=== PATIENT | male | born 1975 | race Caucasian/White ===

== ENCOUNTER 2018-11-12 00:29 | Observation (INO) ==
[2018-11-12] MEDS ORDERED: Ketorolac 30 MG/ML VIAL IVP ONE (01:25)
[2018-11-12] MEDS ORDERED: 0.9 % Sodium Chloride 1,000 ML IVC ONE (01:25)
[2018-11-12 01:33] LABS: Basophils # 0.1 K/mcL (0.0-0.2); Basophils % 0.5 %; Eosinophils # 0.2 K/mcL (0.0-0.6); Eosinophils % 1.1 %; Hematocrit 44.6 % (37.5-50.1); Hemoglobin 15.4 g/dL (12.9-16.9); Immature Granulocytes % 0.3 % (0-4); Lymphocytes # 1.1 K/mcL (0.6-4.6); Lymphocytes % 7.6 %; Mean Corpuscular HGB Conc 34.5 g/dL (31.6-35.5); Mean Corpuscular Hemoglobin 30.6 pg (28.0-33.3); Mean Corpuscular Volume 88.7 fL (83.0-100.0); Mean Platelet Volume 9.4 fL (9.4-12.4); Monocytes # 1.2 K/mcL (0.0-1.3); Monocytes % 8.4 %; Neutrophils # 11.9 K/mcL (1.6-8.9); Platelet Count 335 K/mcL (140-400); Red Blood Count 5.03 M/mcL (4.19-5.50); Red Cell Distribution Width 13.2 % (11.5-14.5); Segmented Neutrophils % 82.1 %
[2018-11-12 01:35] LABS: Bilirubin,Urine Negative (Negative); Blood,Urine Negative (Negative); Clarity,Urine Clear (Clear); Color,Urine Yellow (Yellow); Glucose,Urine (UA) Normal (Normal); Ketones,Urine Negative (Negative); Leukocyte Esterase,Urine Negative (Negative); Nitrite,Urine Negative (Negative); PH,Urine 6.5 pH Units (5.0-8.0); Protein,Urine Negative (Neg-Trace); Urobilinogen,Urine Normal (Normal)
[2018-11-12 01:45] LABS: Alanine Aminotransferase 23 Units/L (7-52); Albumin 4.3 g/dL (3.5-5.7); Albumin/Globulin Ratio 1.6 (1.1-2.2); Alkaline Phosphatase 67 Units/L (34-104); Aspartate Amino Transferase 16 Units/L (13-39); BUN/Creatinine Ratio 14 (6-26); Bilirubin,Direct 0.1 mg/dL (0.0-0.2); Bilirubin,Indirect 0.3 mg/dL (0.0-1.2); Bilirubin,Total 0.4 mg/dL (0.3-1.0); Blood Urea Nitrogen 13 mg/dL (6-20); Calcium 9.1 mg/dL (8.6-10.3); Carbon Dioxide 28 mEq/L (23-29); Chloride 101 mEq/L (98-107); Globulin 2.7 g/dL (2.4-3.5); Glucose 150 mg/dL (70-105); Lipase 21 Units/L (11-82); Osmolality,Calculated 287 (280-300); Potassium 3.4 mEq/L (3.5-5.1); Sodium 137 mEq/L (136-145); eGFR For Non-African Americans > 60 (> 60)
--- NOTE | 2018-11-12 02:02 | Emergency Department Note ---
Disposition Clinical Impression: Diverticulitis Disposition: Admitted As Inpatient Condition: Good Referrals: Wanda Rodriguez MD [Primary Care Provider] - Forms: ED Satisfaction Letter, Work/School Release General Adult HPI - General Chief complaint: ED Abdominal Pain Stated complaint: ABD Pain Time Seen by Provider: 11/12/18 00:41 Source: patient Mode of arrival: private vehicle Limitations: no limitations Nursing Notes Reviewed: Yes Vital Signs Reviewed: Yes - History of Present Illness HPI Narrative: 43-year-old male with a history pertinent for recent episode of diverticulitis of the sigmoid colon recently completed a course of ciprofloxacin and Flagyl presents emergency department for evaluation of left lower quadrant pain that radiates around to his back that started around 8 PM yesterday. Patient states the pain is sharp. He states nothing makes it better, nothing makes it worse. The pain is constant. He states his last bowel movement was today and was regular and formed, no genitourinary complaints. He denies fever, chills, na usea, vomiting, constipation, diarrhea, hematemesis, melena, hematochezia. Onset (ago): hour(s) Location: abdomen Radiation: back Pain Severity: severe Pain Scale: 10 Quality: sharp Consistency: constant Improves with: nothing Worsens with: nothing Associated symptoms: Denies: confusion, chest pain, cough, diaphoresis, fever/chills, headaches, loss of appetite, malaise, nausea/vomiting, rash, shortness of breath, syncope, weakness Treatments Prior to Arrival: none - Related Data Previous Rx's Medication Instructions Recorded metroNIDAZOLE [Metronidazole] 500 mg PO TID #21 tablet 10/21/18 Allergies Allergy/AdvReac Type Severity Reaction Status Date / Time No Known Allergies Allergy Verified 10/21/18 14:50 All systems ED: reviewed and negative except as stated. Review of Systems: As Per HPI Past Medical History - Past Medical History Attestation: Yes The following information was validated with the patient. Source: patient Medical history: Reports: hyperlipidemia, hypertension, other Psychiatric history: Reports: no psych history - Social History Smoking Status: Current every day smoker Smokeless Tobacco Status: No Alcohol use: Reports: none Drug use: Reports: none Physical Exam - General Limitations: no limitations General appearance: alert, in no apparent distress - Head Head exam: atraumatic, normocephalic, normal inspection - Eye Eye exam: Present: normal appearance - ENT ENT exam: mucous membranes moist - Neck Neck exam: Present: normal inspection, full ROM, trachea midline - Chest Chest inspection: Present: normal inspection, symmetric chest wall rise - Respiratory Respiratory exam: Present: normal lung sounds bilaterally - Cardiovascular Cardiovascular exam: Present: regular rate, normal rhythm, normal heart sounds - Abdominal Exam Abdominal exam: Present: soft, tenderness, normal bowel sounds. Absent: distention, guarding, rebound, rigidity, organomegaly, Arcos's sign, Rovsing's sign Abdominal tenderness: Present: LLQ - Neurological Exam Neurological exam: Present: alert, oriented X3 - Psychiatric Psychiatric exam: Present: normal affect, normal mood - Skin Skin exam: Present: warm, dry, intact, normal color Course Course Narrative: Well-developed nontoxic-appearing male in moderate amount distress due to pain. Respirations are easy and even. Patient is afebrile, slightly tachycardic upon arrival. Physical exam reveals exquisite tenderness to left lower quadrant, no masses, organomegaly. Bowel sounds are normal. Patient recently does completed Cipro and Flagyl for diverticulitis of the si gmoid colon verified by CT. He states he did get better for a time but then about 8:00 tonight started having pain again. Concern for incompletely resolution of diverticulitis. We will obtain basic labs and urine reevaluate. We will treat pain and give a bolus of fluids as well. - Reevaluation(s) Reevaluation #1: Labs returned with an elevated white count at 14.5, neutrophils elevated at 11.9, metabolic panel is unremarkable, UA is unremarkable. Comparison labs revealed patient with active infection white count was 13.9 with elevated neutrophils. Labs comparable to previous which further increased concern for a non-resolution of diverticulitis. Given the patient's presentation, recent history with an infection, exquisite abdominal tenderness I do feel we should re-evaluate the abdomen to ensure no forming abscess due to the diverticulitis. I did discuss with patient results and benefits of rescan, patient is agreeable to states the pain is horrible. He reinforces that he did take all of his medication that was prescribed. Time: 01:55 Reevaluation #2: Patient resting quietly, he states pain is significantly better and he feels considerably better after dose of Toradol. CT of the abdomen and pelvis returns with only a slight improvement of the diverticulitis. Given patient's pr esenting symptoms, new diverticulitis diagnosis I feel patient be better off to be admitted for failed outpatient treatment. I did discuss this with patient who does agree. I did discuss this case with attending Dr. Guaman has had one-on-one face time with patient and is agreeable to plan of care. At this time we will page the hospitalist for admission. Time: 02:54 Vital Signs Temperature 98.3 F 11/12/18 00:31 Pulse Rate 103 11/12/18 00:31 Respiratory Rate 16 11/12/18 00:31 Blood Pressure 124/83 11/12/18 00:31 O2 Sat by Pulse Oximetry 98 11/12/18 00:31 Temperature 98.3 F 11/12/18 00:31 Pulse Rate 103 11/12/18 00:31 Respiratory Rate 16 11/12/18 00:31 Blood Pressure 124/83 11/12/18 00:31 O2 Sat by Pulse Oximetry 98 11/12/18 00:31 Oxygen Delivery Oxygen Delivery Room Air Medical Decision Making - Lab Data Result diagrams: 11/12/18 00:48 11/12/18 00:48 Lab Results 11/12/18 11/12/18 11/12/18 Range/Units 00:48 00:48 00:48 WBC 14.5 H (4.3-11.1) K/mcL RBC 5.03 (4.19-5.50) M/mcL Hgb 15.4 (12.9-16.9) g/dL Hct 44.6 (37.5-50.1) % MCV 88.7 (83.0-100.0) fL MCH 30.6 (28.0-33.3) pg MCHC 34.5 (31.6-35.5) g/dL RDW 13.2 (11.5-14.5) % Plt Count 335 (140-400) K/mcL MPV 9.4 (9.4-12.4) fL Immature Gran % 0.3 (0-4) % Seg Neutrophils % 82.1 % Lymphocytes % 7.6 % Monocytes % 8.4 % Eosinophils % 1.1 % Basophils % 0.5 % Neutrophils # 11.9 H (1.6-8.9) K/mcL Lymphocytes # 1.1 (0.6-4.6) K/mcL Monocytes # 1.2 (0.0-1.3) K/mcL Eosinophils # 0.2 (0.0-0.6) K/mcL Basophils # 0.1 (0.0-0.2) K/mcL Sodium 137 (136-145) mEq/L Potassium 3.4 L (3.5-5.1) mEq/L Chloride 101 (98-107) mEq/L Carbon Dioxide 28 (23-29) mEq/L BUN 13 (6-20) mg/dL Creatinine 0.90 (0.70-1.30) mg/dL Est GFR ( Amer) > 60 (> 60) Est GFR (Non-Af Amer) > 60 (> 60) BUN/Creatinine Ratio 14 (6-26) Glucose 150 H (70-105) mg/dL Calculated Osmolality 287 (280-300) Calcium 9.1 (8.6-10.3) mg/dL Total Bilirubin 0.4 (0.3-1.0) mg/dL Direct Bilirubin 0.1 (0.0-0.2) mg/dL Indirect Bilirubin 0.3 (0.0-1.2) mg/dL AST 16 (13-39) Units/L ALT 23 (7-52) Units/L Alkaline Phosphatase 67 (34-104) Units/L Serum Total Protein 7.0 (6.4-8.9) g/dL Albumin 4.3 (3.5-5.7) g/dL Globulin 2.7 (2.4-3.5) g/dL Albumin/Globulin Ratio 1.6 (1.1-2.2) Lipase 21 (11-82) Units/L Urine Color Yellow (Yellow) Urine Clarity Clear (Clear) Urine pH 6.5 (5.0-8.0) pH Units Ur Specific [place] 1.010 (1.010-1.025) Urine Protein Negative (Neg-Trace) mg/dL Urine Glucose (UA) Normal (Normal) mg/dL Urine Ketones Negative (Negative) mg/dL Urine Blood Negative (Negative) Urine Nitrite Negative (Negative) Urine Bilirubin Negative (Negative) Urine Urobilinogen Normal (Normal) mg/dL Ur Leukocyte Esterase Negative (Negative) Ur Culture Indicated? NO (NO)
[2018-11-12] MEDS ORDERED: Piperacillin/Tazobactam 3.375 GM in 0.9 % Sodium Chloride Mini Bag 100 ML IVPB ONE (03:06)
[2018-11-12] MEDS ORDERED: 0.9 % Sodium Chloride 1,000 ML IVC SCH (03:15)
--- NOTE | 2018-11-12 04:05 | Internal Med History&Physical ---
Date of Encounter: 11/12/18 Time of Encounter: 04:03 Internal Medicine - H&P: HPI Chief complaint: abdominal pain Admitted From: Home Plans for Post Hospital Care: Home History of present illness: Chago Jacome is a 43 year old man who was seen on our emergency room on 3 weeks ago the complaint of abdominal pain and was diagnosed with acute diverticulitis of the sigmoid colon. He was given intravenous antibiotics in the emergency room and discharged on oral ciprofloxacin and metronidazole. He comes back today complaining of a recurrence of the left lower quadrant pain that started around 8 PM last night with radiation towards his back. He describes the pain as sharp in nature with no exacerbating or ameliorating actions of the pain remains constant. He did have a bowel movement that was regular and formed and he denies any dysuria, fever, chills, nausea, vomiting, diarrhea, GI bleed. Another CT scan was done in the ER and again showed acute diverticulitis in the proximal sigmoid colon with a pattern that seems slightly improved from the prior. He states that he completed his prior antibiotic course and that his symptoms resolved even before completion of the course and has been doing well for the last 2 weeks. Lab work was revealing of a leukocyte count of 14.5; it was 13.8 3 weeks ago. He states he He is now admitted for further care given the recidivism after completed outpatient therapy. Past Med Surg Social Fam HX - Past Medical History Medical history: hyperlipidemia, hypertension, other Additional medical history: diverticulitis Psychiatric history: no psych history - Social History Smoking Status: Current every day smoker Smokeless Tobacco Status: No Alcohol use: none Drug use: none Internal Medicine - H&P: Meds metroNIDAZOLE [Metronidazole] 500 mg PO TID #21 tablet 10/21/18 [Rx] Allergy/AdvReac Type Severity Reaction Status Date / Time No Known Allergies Allergy Verified 10/21/18 14:50 All Systems PM: A 10-system review of systems was performed and is negative for pertinent findings except as documented above in the HPI. Family history reviewed and found noncontributory. - Constitutional Vitals: Temp Pulse Resp BP Pulse Ox 98.3 F 87 14 114/74 94 11/12/18 00:31 11/12/18 03:35 11/12/18 03:35 11/12/18 03:35 11/12/18 03:35 Exam: Vitals: Reviewed General: Well-developed male lying comfortably in bed in no acute distress. Skin: Warm and supple. HEENT: Moist mucous membranes. No conjunctivae pallor. Neck: No lymphadenopathy. No JVD. No carotid bruits. No palpable thyroid. Chest: Normal thoracic expansion. Normal breath sounds. Clear to auscultation. Heart: Normal S1 & S2; rhythmic. No rubs or murmurs. Abdomen: Non-distended, soft and tender to palpation in the left lower quadrant. Extremities: No clubbing, cyanosis or edema. No calf tenderness. Normal distal pulses. Neurological: Awake, alert and oriented to person, place and time. No focal deficits. Psych: Affect appropriate. Internal Med - H&P Results - Labs CBC & Chem 7: 11/12/18 00:48 11/12/18 00:48 Labs: Short CBC 11/12/18 Range/Units 00:48 WBC 14.5 H (4.3-11.1) K/mcL Hgb 15.4 (12.9-16.9) g/dL Hct 44.6 (37.5-50.1) % Plt Count 335 (140-400) K/mcL Neutrophils # 11.9 H (1.6-8.9) K/mcL BMP 11/12/18 00:48 Sodium 137 Potassium 3.4 L Chloride 101 Carbon Dioxide 28 BUN 13 Creatinine 0.90 Glucose 150 H Calcium 9.1 Liver Function 11/12/18 Range/Units 00:48 Total Bilirubin 0.4 (0.3-1.0) mg/dL Direct Bilirubin 0.1 (0.0-0.2) mg/dL AST 16 (13-39) Units/L ALT 23 (7-52) Units/L Alkaline Phosphatase 67 (34-104) Units/L Albumin 4.3 (3.5-5.7) g/dL Urine 11/12/18 Range/Units 00:48 Urine Color Yellow (Yellow) Urine Clarity Clear (Clear) Urine pH 6.5 (5.0-8.0) pH Units Ur Specific [place] 1.010 (1.010-1.025) Urine Protein Negative (Neg-Trace) mg/dL Urine Glucose (UA) Normal (Normal) mg/dL - Impressions ITS Impressions Abdomen/Pelvis CT 11/12/18 01:59 IMPRESSION: 1. Acute diverticulitis in the proximal sigmoid colon. Overall pattern has slightly improved from prior comparison CT. 2. No perforation or abscess. D/ / Alec Raman MD / Alec Raman MD Interpreting Provider: Alec Raman MD - Assessment and plan (1) Diverticulitis Current Visit: Yes Status: Acute Assessment and plan: Will keep on clear liquid diet for now and advance as tolerated. Continue PipTazo empirically given the recent use of cipro/metro and blood cultures should be obtained. Pain control measures as needed. He should be scheduled for an outpatient GI evaluation as he will benefit from screening colonoscopy. (2) Smoker Current Visit: Yes Status: Acute Assessment and plan: Counseled accordingly. Will provide nicotine patch if needed. (3) HTN (hypertension) Current Visit: Yes Status: Acute Assessment and plan: Reported by the patient but does not know what medication he takes. Monitor. Qualifiers: Hypertension type: essential hypertension Qualified Code(s): I10 - Essential (primary) hypertension (4) HLD (hyperlipidemia) Current Visit: Yes Status: Acute Assessment and plan: Reported by the patient but does not know what medication he takes. Qualifiers: Hyperlipidemia type: unspecified Qualified Code(s): E78.5 - Hyperlipidemia, unspecified - Time Spent With Patient Total time spent is greater than 50% in coordination of care (as documented) at patient's floor/unit and/or counseling patient: Greater than 35 minutes
--- NOTE | 2018-11-12 04:06 | Emergency Department Note ---
Disposition Clinical Impression: Diverticulitis Disposition: Admitted As Inpatient Condition: Good General Adult HPI - General Chief complaint: ED Abdominal Pain Stated complaint: ABD Pain Time Seen by Provider: 11/12/18 00:41 Source: patient Mode of arrival: private vehicle Limitations: no limitations Nursing Notes Reviewed: Yes Vital Signs Reviewed: Yes - History of Present Illness Location: abdomen Pain Scale: 10 Quality: sharp Improves with: nothing Worsens with: nothing Associated symptoms: Denies: confusion, chest pain, cough, diaphoresis, fever/chills, headaches, loss of appetite, malaise, nausea/vomiting, rash, shortness of breath, syncope, weakness Treatments Prior to Arrival: none - Related Data Previous Rx's Medication Instructions Recorded metroNIDAZOLE [Metronidazole] 500 mg PO TID #21 tablet 10/21/18 Allergies Allergy/AdvReac Type Severity Reaction Status Date / Time No Known Allergies Allergy Verified 10/21/18 14:50 Past Medical History - Past Medical History Medical history: Reports: hyperlipidemia, hypertension, other Psychiatric history: Reports: no psych history - Social History Smoking Status: Current every day smoker Smokeless Tobacco Status: No Alcohol use: Reports: none Drug use: Reports: none Physical Exam - General Limitations: no limitations General appearance: alert, in no apparent distress Course Vital Signs Temperature 98.3 F 11/12/18 00:31 Pulse Rate 103 11/12/18 00:31 Respiratory Rate 16 11/12/18 00:31 Blood Pressure 124/83 11/12/18 00:31 O2 Sat by Pulse Oximetry 98 11/12/18 00:31 Temperature 98.3 F 11/12/18 00:31 Pulse Rate 87 11/12/18 03:35 Respiratory Rate 14 11/12/18 03:35 Blood Pressure 114/74 11/12/18 03:35 O2 Sat by Pulse Oximetry 94 11/12/18 03:35 Oxygen Delivery Oxygen Delivery Room Air Medical Decision Making - Medical Records Medical records reviewed: Yes I reviewed the patient's medical records. - Lab Data Lab results reviewed: Yes I reviewed the patient's lab results. Result diagrams: 11/12/18 00:48 11/12/18 00:48 Lab Results 11/12/18 11/12/18 11/12/18 Range/Units 00:48 00:48 00:48 WBC 14.5 H (4.3-11.1) K/mcL RBC 5.03 (4.19-5.50) M/mcL Hgb 15.4 (12.9-16.9) g/dL Hct 44.6 (37.5-50.1) % MCV 88.7 (83.0-100.0) fL MCH 30.6 (28.0-33.3) pg MCHC 34.5 (31.6-35.5) g/dL RDW 13.2 (11.5-14.5) % Plt Count 335 (140-400) K/mcL MPV 9.4 (9.4-12.4) fL Immature Gran % 0.3 (0-4) % Seg Neutrophils % 82.1 % Lymphocytes % 7.6 % Monocytes % 8.4 % Eosinophils % 1.1 % Basophils % 0.5 % Neutrophils # 11.9 H (1.6-8.9) K/mcL Lymphocytes # 1.1 (0.6-4.6) K/mcL Monocytes # 1.2 (0.0-1.3) K/mcL Eosinophils # 0.2 (0.0-0.6) K/mcL Basophils # 0.1 (0.0-0.2) K/mcL Sodium 137 (136-145) mEq/L Potassium 3.4 L (3.5-5.1) mEq/L Chloride 101 (98-107) mEq/L Carbon Dioxide 28 (23-29) mEq/L BUN 13 (6-20) mg/dL Creatinine 0.90 (0.70-1.30) mg/dL Est GFR ( Amer) > 60 (> 60) Est GFR (Non-Af Amer) > 60 (> 60) BUN/Creatinine Ratio 14 (6-26) Glucose 150 H (70-105) mg/dL Calculated Osmolality 287 (280-300) Calcium 9.1 (8.6-10.3) mg/dL Total Bilirubin 0.4 (0.3-1.0) mg/dL Direct Bilirubin 0.1 (0.0-0.2) mg/dL Indirect Bilirubin 0.3 (0.0-1.2) mg/dL AST 16 (13-39) Units/L ALT 23 (7-52) Units/L Alkaline Phosphatase 67 (34-104) Units/L Serum Total Protein 7.0 (6.4-8.9) g/dL Albumin 4.3 (3.5-5.7) g/dL Globulin 2.7 (2.4-3.5) g/dL Albumin/Globulin Ratio 1.6 (1.1-2.2) Lipase 21 (11-82) Units/L Urine Color Yellow (Yellow) Urine Clarity Clear (Clear) Urine pH 6.5 (5.0-8.0) pH Units Ur Specific [place] 1.010 (1.010-1.025) Urine Protein Negative (Neg-Trace) mg/dL Urine Glucose (UA) Normal (Normal) mg/dL Urine Ketones Negative (Negative) mg/dL Urine Blood Negative (Negative) Urine Nitrite Negative (Negative) Urine Bilirubin Negative (Negative) Urine Urobilinogen Normal (Normal) mg/dL Ur Leukocyte Esterase Negative (Negative) Ur Culture Indicated? NO (NO) - Radiology Data Radiology results reviewed: Yes I reviewed the patient's radiology results. Abdomen/Pelvis CT 11/12/18 01:59 IMPRESSION: 1. Acute diverticulitis in the proximal sigmoid colon. Overall pattern has slightly improved from prior comparison CT. 2. No perforation or abscess. D/ / Alec Raman MD / Alec Raman MD Interpreting Provider: Alec Raman MD Attestation Statement - Attestation Attestation: I, Magen Guaman MD, personally evaluated this patient and discussed their management with the midlevel provicer, PAC/SENIOR BUSINESS DEVELOPMENT MANAGER. I reviewed the midlevel provider's note and agree with the documented findings, medical decision making, and plan of care. 43-year-old male presents to the emergency department with complaint of left lower quadrant abdominal pain which became acutely worse this evening. Patient was diagnosed with diverticulitis several weeks ago. He seemed outpatient Cipro and Flagyl. Symptoms did seem to improve but never totally resolved. Then became acutely worse tonight. He denies any fever. No diarrhea. No GI bleed symptoms. On examination patient is a well-developed well-nourished male in no acute distress. He is alert and oriented 3. There is no cyanosis or diaphoresis. Breath sounds are clear and equal bilaterally. Heart regular rate and rhythm. Abdomen is soft with present bowel sounds. There is marked left lower quadrant tenderness with guarding. Labs reviewed. CT shows acute diverticulitis. The hospitalist, Dr. Jimenez, was consulted and accepted admission of the patient.
[2018-11-12] MEDS ORDERED: OXYCODONE Oral CONC 10 MG/0.5 ML ORAL.SYG SL PRN ×2 (04:56)
[2018-11-12] MEDS: *HR* Heparin 5,000 UNIT/ML VIAL SQ SCH ×2 (05:33→17:14)
[2018-11-12] MEDS: Ringers Solution, Lactated 1,000 ML IVC SCH ×2 (05:35→20:23)
--- NOTE | 2018-11-12 11:02 | Event Note ---
Addendum entered and electronically signed by Braulio Blake 11/13/18 10:10: Physical exam General: well developed, well nourished male in mild distress Head: normocephalic and atraumatic Eyes: PERRL, EOMI, sclera anicteric, conjunctiva pink Neck: supple, trachea midline Lungs: CTA bilaterally, non-labored breathing. no wheezes, rales, or rhonchi Heart: RRR +s1 +s2 no murmurs, clicks, or rubs GI: abdomen soft, TTP of LLQ and suprapubic regions, non-peritoneal. mildly distended. normoactive bowel sounds Extremities: warm, peripheral pulses palpable and symmetrical. no cyanosis or edema Neuro: A&Ox3. no focal deficits. no speech difficulty or abnormality Skin: warm, dry, intact Original Note: <Hussain Geronimo - Last Filed: 11/12/18 17:21> Date of Encounter: 11/12/18 I examined this patient and my medical decision-making was reviewed with the Resident Physician. I agree with the documented findings, disposition and treatment plan as described except to the extent set forth below. Patient states he is still having significant abdominal pain. CT abdomen/pelvis shows improvement of diverticulitis but pain still intolerable for patient. VS reviewed, labs reviewed. He technically meets sepsis criteria for HR 103 bpm (on admission) and WBC 14k, but he appears non-toxic. VS have since been stable. Afebrile. Monitor VS, recheck labs in AM. Continue clear liquid diet for now. Continue IV antibiotics until pain is better controlled and then will consider advancing diet. May need different regimen of antibiotics on discharge since failed Cipro/Flagyl. <Braulio Blake - Last Filed: 11/12/18 18:10> Date of Encounter: 11/12/18 Time of Encounter: 10:00 Mr. Jacome is a 43M with PMH of diverticulitis, most recently admitted on . He completed a course of abx at that time with resolution of symptoms, however he returned to the ED on 11/12/18 for return of left lower quadrant abdominal pain. CT abdomen/pelvis from the ED showed acute sigmoid diverticulitis which is slightly improved from previous admission. Pt was started on Zosyn at this time. Seen and examined at bedside. States his abdominal pain has improved somewhat since admission. Endorses improvement in his nausea as well. No vomiting. Denies any chest pain, shortness of breath, fever, chills, dysuria, diarrhea, or constipation. Plan: Continue IV fluids until able to tolerate diet. Advance diet as tolerated. Tolerating small sips of clears today. Continue IV Zosyn at this time. Replaced potassium.
[2018-11-12] MEDS ORDERED: Potassium Chloride 40 MEQ, Lidocaine 1% 2 ML in D5% in Water 500 ML IVPB ONE (11:20)
[2018-11-12] MEDS: Piperacillin/Tazobactam 3.375 GM in 0.9 % Sodium Chloride Mini Bag 100 ML IVPB SCH ×2 (12:06→19:35)
[2018-11-12] MEDS: Ketorolac 30 MG/ML VIAL IVP PRN (12:06)
[2018-11-13] MEDS: Piperacillin/Tazobactam 3.375 GM in 0.9 % Sodium Chloride Mini Bag 100 ML IVPB SCH ×3 (04:53→20:00)
[2018-11-13] MEDS: *HR* Heparin 5,000 UNIT/ML VIAL SQ SCH ×2 (05:56→17:37)
[2018-11-13 06:44] LABS: Basophils # 0.1 K/mcL (0.0-0.2); Basophils % 0.7 %; Eosinophils # 0.2 K/mcL (0.0-0.6); Eosinophils % 3.2 %; Hematocrit 39.7 % (37.5-50.1); Immature Granulocytes % 0.1 % (0-4); Lymphocytes # 1.8 K/mcL (0.6-4.6); Lymphocytes % 24.4 %; Mean Corpuscular Hemoglobin 30.5 pg (28.0-33.3); Mean Corpuscular Volume 89.6 fL (83.0-100.0); Monocytes # 0.7 K/mcL (0.0-1.3); Monocytes % 10.2 %; Neutrophils # 4.4 K/mcL (1.6-8.9); Platelet Count 254 K/mcL (140-400); Red Blood Count 4.43 M/mcL (4.19-5.50); Red Cell Distribution Width 13.4 % (11.5-14.5); Segmented Neutrophils % 61.4 %
[2018-11-13 06:48] LABS: Hemoglobin 13.5 g/dL (12.9-16.9)
[2018-11-13 07:00] LABS: BUN/Creatinine Ratio 11 (6-26); Blood Urea Nitrogen 10 mg/dL (6-20); Calcium 8.7 mg/dL (8.6-10.3); Carbon Dioxide 26 mEq/L (23-29); Chloride 108 mEq/L (98-107); Glucose 87 mg/dL (70-105); Osmolality,Calculated 286 (280-300); Potassium 3.8 mEq/L (3.5-5.1); Sodium 139 mEq/L (136-145); eGFR For Non-African Americans > 60 (> 60)
--- NOTE | 2018-11-13 09:03 | Internal Med Progress Note ---
Addendum entered and electronically signed by Braulio Blake 11/13/18 19:14: Original Note: <Braulio Blake - Last Filed: 11/13/18 16:16> Hospitalist Progress Note - Encounter Date of Encounter: 11/13/18 Time of Encounter: 10:09 - Subjective Interval History: Mr. Jacome is a 43M with PMH of diverticulitis, most recently admitted on . He completed a course of abx at that time with resolution of symptoms, however he returned to the ED on 11/12/18 for return of left lower qu adrant abdominal pain. CT abdomen/pelvis from the ED showed acute sigmoid diverticulitis which is slightly improved from previous admission. Pt was started on Zosyn at this time. Seen and examined at bedside. Pt states he feels much better today. States his abdominal pain is nearly gone. Endorses improvement in his nausea as well, has tolerated clear liquids. No vomiting. Denies any chest pain, shortness of breath, fever, chills, dysuria, diarrhea, or constipation. Admits to flatus. - Exam Vitals: Temp Pulse Resp BP Pulse Ox 98 F 71 15 112/73 95 11/13/18 07:34 11/13/18 07:34 11/13/18 07:34 11/13/18 07:34 11/13/18 07:34 Exam: General: well developed, well nourished male in mild distress Head: normocephalic and atraumatic Eyes: PERRL, EOMI, sclera anicteric, conjunctiva pink Neck: supple, trachea midline Lungs: CTA bilaterally, non-labored breathing. no wheezes, rales, or rhonchi Heart: RRR +s1 +s2 no murmurs, clicks, or rubs GI: abdomen soft, non-tender, minimally distended. normoactive bowel sounds Extremities: warm, peripheral pulses palpable and symmetrical. no cyanosis or edema Neuro: A&Ox3. no focal deficits. no speech difficulty or abnormality Skin: warm, dry, intact - Assessment and Plan (1) Diverticulitis Current Visit: Yes Status: Acute Assessment and Plan: As seen on CT from ED with acute sigmoid diverticulitis, slightly improved from previous admission Tolerating clear liquids, advance to full liquids and possibly to soft diet as tolerated Continue Zosyn (Day 2) (2) HTN (hypertension) Current Visit: Yes Status: Acute (3) Smoker Current Visit: Yes Status: Acute Assessment and Plan: Educated pt on importance of cessation and treatment alternatives (4) HLD (hyperlipidemia) Current Visit: Yes Status: Acute - Time Spent with Patient Total time spent is greater than 50% in coordination of care (as documented) at patient's floor/unit and/or counseling patient: Internal Medicine: Result - Labs CBC & Chem 7: 11/13/18 06:30 11/13/18 06:30 Labs: Short CBC 11/13/18 Range/Units 06:30 WBC 7.2 D (4.3-11.1) K/mcL Hgb 13.5 D (12.9-16.9) g/dL Hct 39.7 (37.5-50.1) % Plt Count 254 (140-400) K/mcL Neutrophils # 4.4 (1.6-8.9) K/mcL BMP 11/13/18 06:30 Sodium 139 Potassium 3.8 Chloride 108 H Carbon Dioxide 26 BUN 10 Creatinine 0.93 Glucose 87 Calcium 8.7 Consult Discharge Plan - Plan Referrals: Wanda Rodriguez MD [Primary Care Provider] - <Hussain Geronimo - Last Filed: 11/13/18 17:52> Hospitalist Progress Note - Encounter Date of Encounter: 11/13/18 - Exam Vitals: Temp Pulse Resp BP Pulse Ox 99.1 F 87 15 112/74 95 11/13/18 17:10 11/13/18 17:10 11/13/18 17:10 11/13/18 17:10 11/13/18 17:10 - Assessment and Plan (1) Diverticulitis Current Visit: Yes Status: Acute (2) Smoker Current Visit: Yes Status: Acute (3) HTN (hypertension) Current Visit: Yes Status: Acute (4) HLD (hyperlipidemia) Current Visit: Yes Status: Acute - Time Spent with Patient Total time spent is greater than 50% in coordination of care (as documented) at patient's floor/unit and/or counseling patient: Internal Medicine: Result - Labs CBC & Chem 7: 11/13/18 06:30 11/13/18 06:30 Labs: Short CBC 11/13/18 Range/Units 06:30 WBC 7.2 D (4.3-11.1) K/mcL Hgb 13.5 D (12.9-16.9) g/dL Hct 39.7 (37.5-50.1) % Plt Count 254 (140-400) K/mcL Neutrophils # 4.4 (1.6-8.9) K/mcL BMP 11/13/18 06:30 Sodium 139 Potassium 3.8 Chloride 108 H Carbon Dioxide 26 BUN 10 Creatinine 0.93 Glucose 87 Calcium 8.7 - Attending Attestation I examined this patient and my medical decision-making was reviewed with the Resident Physician. I agree with the documented findings, disposition and treatment plan as described except to the extent set forth below. No complaints. Abdominal pain improved. On exam, abdomen is soft, non-tender. Labs and VS reviewed, leukocytosis resolved, afebrile. Patient tolerating clears. Advance diet, switch to PO abx. If continues to improve, anticipate home tomorrow. <Braulio Blake - Last Filed: 11/13/18 16:16> (2) HTN (hypertension) Qualifiers: Hypertension type: essential hypertension Qualified Code(s): I10 - Essential (primary) hypertension (4) HLD (hyperlipidemia) Qualifiers: Hyperlipidemia type: unspecified Qualified Code(s): E78.5 - Hyperlipidemia, unspecified <Hussain Geronimo - Last Filed: 11/13/18 17:52> (3) HTN (hypertension) Qualifiers: Hypertension type: essential hypertension Qualified Code(s): I10 - Essential (primary) hypertension (4) HLD (hyperlipidemia) Qualifiers: Hyperlipidemia type: unspecified Qualified Code(s): E78.5 - Hyperlipidemia, unspecified
[2018-11-13] MEDS: Ketorolac 30 MG/ML VIAL IVP PRN (17:41)
[2018-11-14] MEDS: Piperacillin/Tazobactam 3.375 GM in 0.9 % Sodium Chloride Mini Bag 100 ML IVPB SCH ×2 (03:27→11:24)
[2018-11-14 05:07] LABS: Basophils # 0.1 K/mcL (0.0-0.2); Basophils % 0.7 %; Eosinophils # 0.2 K/mcL (0.0-0.6); Eosinophils % 2.8 %; Hematocrit 37.3 % (37.5-50.1); Hemoglobin 12.6 g/dL (12.9-16.9); Immature Granulocytes % 0.3 % (0-4); Lymphocytes # 2.4 K/mcL (0.6-4.6); Lymphocytes % 31.2 %; Mean Corpuscular HGB Conc 33.8 g/dL (31.6-35.5); Mean Corpuscular Hemoglobin 30.3 pg (28.0-33.3); Mean Corpuscular Volume 89.7 fL (83.0-100.0); Mean Platelet Volume 9.3 fL (9.4-12.4); Monocytes # 0.9 K/mcL (0.0-1.3); Monocytes % 11.3 %; Neutrophils # 4.1 K/mcL (1.6-8.9); Platelet Count 259 K/mcL (140-400); Red Blood Count 4.16 M/mcL (4.19-5.50); Red Cell Distribution Width 13.4 % (11.5-14.5); Segmented Neutrophils % 53.7 %
[2018-11-14 05:22] LABS: BUN/Creatinine Ratio 9 (6-26); Blood Urea Nitrogen 8 mg/dL (6-20); Calcium 8.5 mg/dL (8.6-10.3); Carbon Dioxide 26 mEq/L (23-29); Chloride 107 mEq/L (98-107); Glucose 99 mg/dL (70-105); Osmolality,Calculated 286 (280-300); Potassium 3.7 mEq/L (3.5-5.1); Sodium 139 mEq/L (136-145); eGFR For Non-African Americans > 60 (> 60)
[2018-11-14] MEDS: *HR* Heparin 5,000 UNIT/ML VIAL SQ SCH (06:10)
[2018-11-14 12:00] LABS: Basophils % 0.6 %; Eosinophils # 0.2 K/mcL (0.0-0.6); Eosinophils % 3.4 %; Hematocrit 39.4 % (37.5-50.1); Hemoglobin 13.1 g/dL (12.9-16.9); Immature Granulocytes % 0.2 % (0-4); Lymphocytes # 1.5 K/mcL (0.6-4.6); Lymphocytes % 23.5 %; Mean Corpuscular HGB Conc 33.2 g/dL (31.6-35.5); Mean Corpuscular Hemoglobin 30.2 pg (28.0-33.3); Mean Corpuscular Volume 90.8 fL (83.0-100.0); Mean Platelet Volume 9.1 fL (9.4-12.4); Monocytes # 0.6 K/mcL (0.0-1.3); Monocytes % 10.1 %; Neutrophils # 3.8 K/mcL (1.6-8.9); Platelet Count 251 K/mcL (140-400); Red Blood Count 4.34 M/mcL (4.19-5.50); Red Cell Distribution Width 13.2 % (11.5-14.5); Segmented Neutrophils % 62.2 %
--- NOTE | 2018-11-14 13:01 | Discharge Summary ---
<Hussain Geronimo - Last Filed: 11/14/18 15:11> Orders not resulted at time of discharge: Pending orders 11/12/18 05:04 Culture,Blood [BC] Stat Date of Encounter: 11/14/18 - Discharge Diagnosis (1) Diverticulitis Status: Acute (2) Smoker Status: Acute (3) HTN (hypertension) Status: Acute Qualifiers: Hypertension type: essential hypertension Qualified Code(s): I10 - Essential (primary) hypertension (4) HLD (hyperlipidemia) Status: Chronic Qualifiers: Hyperlipidemia type: unspecified Qualified Code(s): E78.5 - Hyperlipidemia, unspecified Hospital course: Mr. Jacome is a 43 year old male - Time Spent with Patient Total time spent providing and/or coordinating discharge services: - Discharge Medications Prescriptions: Amoxicillin/Clavulanate [Augmentin] 875 mg PO BIDWM 4 Days #8 tablet Lactobacillus Combo No.10 [Probiotic] 1 each PO DAILY 5 Days #5 capsule Home Medications: RX: Amlodipine Besylate 2.5 mg PO DAILY 11/12/18 [History] RX: Lansoprazole [Prevacid] 30 mg PO DAILY 11/12/18 [History] RX: Pravastatin Sodium [Pravachol] 40 mg PO QPM 11/12/18 [History] Amoxicillin/Clavulanate [Augmentin] 875 mg PO BIDWM 4 Days #8 tablet 11/14/18 [Rx] Lactobacillus Combo No.10 [Probiotic] 1 each PO DAILY 5 Days #5 capsule 11/14/18 [Rx] Allergies/Adverse Reactions: Allergy/AdvReac Type Severity Reaction Status Date / Time No Known Allergies Allergy Verified 10/21/18 14:50 Date of admission: 11/12/18 03:16 Primary care physician: Wanda Rodriguez MD - Constitutional Vitals: Temp Pulse Resp BP Pulse Ox 98.0 F 63 16 118/70 95 11/14/18 14:21 11/14/18 14:21 11/14/18 14:21 11/14/18 14:21 11/14/18 14:21 - Patient Status Disposition: Home, Self-Care Condition: Good - Discharge Instructions Instructions: Diverticulitis (DC) Follow Up With: Wanda Rodriguez MD [Primary Care Provider] - 11/21/18 10:15 am - Attending Attestation I examined this patient and my medical decision-making was reviewed with the Resident Physician. I agree with the documented findings, disposition and treatment plan as described except to the extent set forth below. <Braulio Blake Jaime - Last Filed: 11/14/18 19:04> - NOTES TO OUTPATIENT PROVIDER Notes to Outpatient Provider: Mr. Jacome presented to the ED on 11/12/18 for left lower quadrant abdominal pain. He had been recently admitted on for the same complains and had completed a course of antibiotics at that time. During this admission, he was placed on Zosyn. CT of the abdomen revealed sigmoid diverticulitis, improved from the previous admission on . His symptoms resolved and the remainder of his hospital course was unremarkable. Upon discharge, he was given a script for 4 days of Augmentin to complete this course of antibiotics. He was also advised to receive a follow up colonoscopy in approximately 6-8 weeks. Orders not resulted at time of discharge: Pending orders 11/12/18 05:04 Culture,Blood [] Stat Date of Encounter: 11/14/18 Time of Encounter: 10:15 - Discharge Diagnosis (1) Diverticulitis Priority: Primary Status: Acute Assessment and Plan: As seen on CT from ED with acute sigmoid diverticulitis, slightly improved from previous admission Tolerating diet No longer experiencing abdominal pain, nausea, or vomiting. Had 1 normal bowel movement this AM 4 day course Augmentin on discharge. Recommended patient to take medication with food and suggested a probiotic such as Acidophilus while taking the abx. Follow up colonoscopy in 6-8 weeks (2) HTN (hypertension) Priority: Secondary Status: Acute Assessment and Plan: As reported by patient, takes 2.5mg Amlodipine at home Pt remained normotensive throughout admission with most recent BP of 112/73 Continue follow up with PCP. Qualifiers: Hypertension type: essential hypertension Qualified Code(s): I10 - Essential (primary) hypertension (3) HLD (hyperlipidemia) Priority: Secondary Status: Chronic Assessment and Plan: Continue home statin Qualifiers: Hyperlipidemia type: unspecified Qualified Code(s): E78.5 - Hyperlipidemia, unspecified (4) Smoker Priority: Secondary Status: Acute Assessment and Plan: Educated pt on importance of cessation and treatment alternatives Hospital course: Mr. Jacome is a 43 year old male with PMH of diverticulitis, most recently admitted on . He completed a course of abx at that time with resolution of symptoms, however he returned to the ED on 11/12/18 for return of left lower quadrant abdominal pain. CT abdomen/pelvis from the ED showed acute sigmoid diverticulitis which is slightly improved from previous admission. Pt was started on Zosyn at this time. By hospital day 2, the pt's abdominal pain, and nausea had resolved. Zosyn was continued and diet was advanced as tolerated. By hospital day 3 the patient was completely asymptomatic and had a normal bowel movement. Initial H&H the morning of discharge was decreased slightly, but repeat H&H was normal. Pt was given a script for a course of Augmentin to continue a total abx course of 7 days. Pt was counseled on the importance of smoking cessation. He was also encouraged to follow up with a provider and have a colonoscopy in 6-8 weeks. Pt stated he had a preferred provider and would make an appointment after discharge. Discharge discussed with: patient, nurse Time spent discussing smoking cessation with patient: more than 10 minutes - Time Spent with Patient Total time spent providing and/or coordinating discharge services: Date of admission: 11/12/18 03:16 Primary care physician: Wanda Rodriguez MD Discharging clinician: Braulio Blake - Constitutional Vitals: Temp Pulse Resp BP Pulse Ox 98.0 F 58 16 112/73 96 11/14/18 10:30 11/14/18 10:30 11/14/18 10:30 11/14/18 10:30 11/14/18 10:30 General appearance: Present: cooperative, A&O X 3, pleasant, no acute distress, answers questions appropriately Exam: General: well developed, well nourished male in no acute distress Head: normocephalic and atraumatic Eyes: PERRL, EOMI, sclera anicteric, conjunctiva pink Neck: supple, trachea midline Lungs: CTA bilaterally, non-labored breathing. no wheezes, rales, or rhonchi Heart: RRR +s1 +s2 no murmurs, clicks, or rubs GI: abdomen soft, non-tender, non-distended. normoactive bowel sounds Extremities: warm, peripheral pulses palpable and symmetrical. no cyanosis or edema Neuro: A&Ox3. no focal deficits. no speech difficulty or abnormality Skin: warm, dry, intact - Patient Status Functional capacity at discharge: independent ambulation Overall status at discharge: patient is back to baseline - Diet and Activity Activity: increase activity as tolerated, resume usual activities as tolerated Diet: low fat, low cholesterol
[2018-11-14 14:24] VITALS: BP 118/70
== END 2018-11-14 15:42 | disposition home or self-care (01) ==
LOC: EMEROOARM 00:29 → 3ANU 00:29 → SUATTDRO 03:16 → 3ANU 04:19
PROVIDERS: ADMIT Internal Medicine; ATTEND Student in an Organized Health Care Education/Training Program